=== PATIENT | female | born 1960 | race Caucasian/White ===

== ENCOUNTER → 2016-08-02 | Outpatient (CLI) | payer BC ==
[~2016-08-02] MED LIST: ADVIN25/60 INH; CETI10TA10 PO; CETI10TA84 PO; FLUT0.15 NAE; FLUT1INH INH; MONT1TAB3 PO; MULT-506 PO; OMEP20CA9 PO; POLY335019 PO; RANI300T2 PO; TRAZ50TA35 PO; VNTHFA/IN INH; ZNT/150 PO
--- NOTE | 2016-08-02 13:12 | MAMMOGRAPHY REPORT ---
BILATERAL DIGITAL SCREENING MAMMOGRAM TOMOSYNTHESIS WITH CAD: 08/02/2016 CLINICAL HISTORY: Routine screening. Patient has no complaints. TECHNIQUE: Breast tomosynthesis in addition to standard 2D mammography was performed. Current study was also evaluated with a Computer Aided Detection (CAD) system. COMPARISON: Comparison is made to exams dated: 07/28/2015 mammogram, 07/27/2014 mammogram, 07/23/2013 mammogram, 07/17/2012 mammogram, and 07/15/2011 mammogram - [facility]. BREAST COMPOSITION: The tissue of both breasts is heterogeneously dense, which may obscure small ma sses. FINDINGS: No suspicious masses, calcifications, or areas of architectural distortion are noted in e ither breast. There has been no significant interval change compared to prior exams. IMPRESSION: ACR BI-RADS CATEGORY 1: NEGATIVE There is no mammographic evidence of malignancy. A 1 year screening mammogram is recommended. The p atient will receive written notification of the results. Approximately 10% of breast cancers are not detected with mammography. A negative mammographic repor t should not delay biopsy if a clinically suggestive mass is present. Poppy Dukes M.D. ah/:08/02/2016 08:07:42 Grounds Caretaker: Prabhakar CANO(R)(M), [facility] letter sent: Normal 1/2 BI-RADS Code: ACR BI-RADS Category 1: Negative
== END | disposition home or self-care (01) ==
LOC: C.MAMM 07:40
PROVIDERS: ATTEND Family Medicine
DX: Z12.31 Encounter for screening mammogram for malignant neoplasm of breast (principal)

== ENCOUNTER → 2016-09-25 | Day surgery (SDC) | payer BC ==
[2016-09-19 13:56] VITALS: BMI 27.0
[~2016-09-25] VITALS: Ht 157.5 cm; Wt 68.2 kg
[~2016-09-25] MED LIST changes: -CETI10TA10 PO; +LIDOCAINE HCL 2% 2 ML VIAL (20MG/ML) ONE; +PROPOFOL IV EMULSION 10 MG/ML 20 ML VIAL IV ONE; +SODIUM CHLORIDE 0.9% 500ML 500 ML IV ONE
[2016-09-25 13:00] VITALS: Ht 157.5 cm; Wt 68.2 kg
[2016-09-25 13:24] VITALS: TEMP 36.5
--- NOTE | 2016-09-25 13:47 | Endo History and Physical ---
History & Physical Date of Service: September 25, 2016. Chief Complaint: ROUTINE SCREENING Referring Physician: DR. CERNA History of Present Illness 56 yo CF who presents for screening colonoscopy. Past Surgical History Hx Cardiac Surgery: No Hx Internal Defibrillator: No Hx Pacemaker: No Hx Abdominal Surgery: No Hx of Implantable Prosthesis: No Hx Post-Op Nausea and Vomiting: Yes Hx Cancer Surgery: Yes (BCC EXCISION FROM HEAD) Hx Thoracic Surgery: No Hx Orthopedic: No Hx Urinary Tract Surgery: No Family History Colon CA Social History Smoking Status: Never Smoker Hx Substance Use: No Hx Alcohol Use: Yes (1-2 DRINKS DAILY) Allergies Coded Allergies: Dust Mite Extract (Verified Allergy, Unknown, ., 09/25/16) NO KNOWN DRUG ALLERGIES (Verified Allergy, Unknown, ., 09/25/16) POLLEN (Verified Allergy, Unknown, ., 09/25/16) Current Medications Reported Home Medications Medications Dose Route/Sig Max Daily Dose Days Date Category Ventolin Hfa (Albuterol) 200 Puffs/48022 Mcg Aers 2-4 Puffs INH Q6H 09/25/16 Reported Advair Diskus 250/50 60 Dose (Fluticasone Prop/Salmeterol) 1 Ea Aerp 1 Puffs INH BID 30 09/25/16 Reported Miralax (Polyethylene Glycol 3350) 1 Pow Pow 17 Gm PO DAILY PRN 09/19/16 Reported Trazodone (Trazodone HCl) 50 Mg Tab 50 Mg PO HS PRN 09/19/16 Reported Zyrtec (Cetirizine HCl) 10 Mg Tab 10 Mg PO QAM 09/19/16 Reported Multivitamin (Multivitamins) Tab 1 Tab PO QAM 09/19/16 Reported Zantac (Ranitidine HCl) 300 Mg Tab 300 Mg PO HS 09/19/16 Reported Prilosec (Omeprazole) 20 Mg Cap 20 Mg PO QAM 09/19/16 Reported Vital Signs Weight (Kilograms): 68.18 Height (Feet): 5 Height (Inches): 2 Date Time Temp Pulse Resp B/P Pulse Ox O2 Delivery O2 Flow Rate FiO2 09/25/16 13:24 36.5 67 18 132/75 97 Room Air Physical Exam General Appearance: WD/WN, no apparent distress Respiratory/Chest: Auscultation: breath sounds normal Cardiovascular: Heart Auscultation: RRR Abdomen: Bowel Sounds: normal Inspection & Palpation: soft, non-distended, no tenderness, guarding & rebound Assessment and Plan Assessment: 56 yo CF who presents for screening colonoscopy. Plan: Proceed with colonoscopy.
--- NOTE | 2016-09-25 14:29 | Discharge Instructions ---
Endoscopy Patient Instructions Date / Procedure(s) Performed September 25, 2016. Colonoscopy Allergy Information Coded Allergies: Dust Mite Extract (Verified Allergy, Unknown, ., 09/25/16) NO KNOWN DRUG ALLERGIES (Verified Allergy, Unknown, ., 09/25/16) POLLEN (Verified Allergy, Unknown, ., 09/25/16) Discharge Date / Findings September 25, 2016. Diverticulosis Internal hemorrhoids Medication Instructions Stopped Medication(s): STOP ALL MEDICATIONS EXCEPT PRILOSEC OK to resume all medications today as prescribed Reported Home Medications Medications Dose Route/Sig Max Daily Dose Days Date Category Ventolin Hfa (Albuterol) 200 Puffs/06196 Mcg Aers 2-4 Puffs INH Q6H 09/25/16 Reported Advair Diskus 250/50 60 Dose (Fluticasone Prop/Salmeterol) 1 Ea Aerp 1 Puffs INH BID 30 09/25/16 Reported Miralax (Polyethylene Glycol 3350) 1 Pow Pow 17 Gm PO DAILY PRN 09/19/16 Reported Trazodone (Trazodone HCl) 50 Mg Tab 50 Mg PO HS PRN 09/19/16 Reported Zyrtec (Cetirizine HCl) 10 Mg Tab 10 Mg PO QAM 09/19/16 Reported Multivitamin (Multivitamins) Tab 1 Tab PO QAM 09/19/16 Reported Zantac (Ranitidine HCl) 300 Mg Tab 300 Mg PO HS 09/19/16 Reported Prilosec (Omeprazole) 20 Mg Cap 20 Mg PO QAM 09/19/16 Reported Provider Instructions Activity Restrictions - No exercising or heavy lifting for 24 hours. - Do not drink alcohol the day of the procedure. - Do not drive a car or operate machinery until the day after the procedure. - Do not make any important decisions or sign important papers in 24 hours after the procedure. Following Day: - Return to full activity which may include returning to work/school. Diet Start your diet with liquids and light foods (jello, soup, juice, toast). Then eat your usual diet if not nauseated. Treatment For Common After Affects For mild abdominal pain, bloating, or excessive gas: - Rest - Eat lightly - Lie on right side Follow-Up Information Follow-up with DR. CERNA as scheduled Anesthesia Information What You Should Know You have had a procedure that required some medicine to reduce anxiety and discomfort. This treatment is called moderate sedation. After receiving the treatment, you may be sleepy, but you will be able to breathe on your own. The effects of the treatment may last for several hours. Follow these instructions along with Activity/Diet recommendations noted above: * Do NOT do anything where dizziness or clumsiness would be dangerous. * Rest quietly at home today, then you can be up and about tomorrow. * Have a responsible person stay with you the rest of today. * You may have had an I.V. today. If so, you may take the dressing off later today. Recommendations Call your doctor if: * Trouble breathing * Continuous vomiting for more than 24 hours * Temperature above 101 degrees * Severe abdominal pain or bloating * Pain not relieved by pain medicine ordered * There is increased drainage or redness from any incision * A large amount of rectal bleeding greater than 2-3 tablespoons. (If you had a polyp/s removed or have hemorrhoids, a small amount of blood - from the rectum is to be expected.) * You have any unanswered questions or concerns. IN THE EVENT OF A SERIOUS EMERGENCY, GO TO THE NEAREST EMERGENCY ROOM Your discharge instructions were prepared by provider David Best. Patient Instructions Signature Page Allyson Tracey Patient (or Guardian) Signature/Date: I have read and understand the instructions given to me by my caregivers. Caregiver/RN/Doctor Signature/Date: The above-named patient and/or guardian has received patient instructions on this date. + Original Patient Signature Page (only) stays with chart. Please make copy for patient.
--- NOTE | 2016-09-25 14:29 | GI REPORT ---
Procedure Date: 09/25/2016 2:05 PM Procedure: Colonoscopy Indications: Screening for colorectal malignant neoplasm Medicines: Monitored Anesthesia Care Complications: No immediate complications. Estimated Blood Loss: Estimated blood loss: none. Procedure: Pre-Anesthesia Assessment: - Prior to the procedure, a History and Physical was performed, and patient medications and allergies were reviewed. The patient's tolerance of previous anesthesia was also reviewed. The risks and benefits of the procedure and the sedation options and risks were discussed with the patient. All questions were answered, and informed consent was obtained. Prior Anticoagulants: The patient has taken no previous anticoagulant or antiplatelet agents. ASA Grade Assessment: II - A patient with mild systemic disease. After reviewing the risks and benefits, the patient was deemed in satisfactory condition to undergo the procedure. After I obtained informed consent, the scope was passed under direct vision. Throughout the procedure, the patient's blood pressure, pulse, and oxygen saturations were monitored continuously. The On-site loaner was introduced through the anus and advanced to the terminal ileum. The colonoscopy was performed without difficulty. The patient tolerated the procedure well. The quality of the bowel preparation was good. The terminal ileum, ileocecal valve, appendiceal orifice, and rectum were photographed. Findings: Multiple small-mouthed diverticula were found in the sigmoid colon. Non-bleeding internal hemorrhoids were found during retroflexion. The hemorrhoids were small. Impression: - Diverticulosis in the sigmoid colon. - Non-bleeding internal hemorrhoids. - No specimens collected. Recommendation: - Resume previous diet. - Continue present medications. - Repeat colonoscopy in 10 years for surveillance. - Return to primary care physician as previously scheduled. David Best, DO 09/25/2016 2:29:01 PM This report has been signed electronically. Note Initiated On: 09/25/2016 2:05 PM I attest to the content of the Intraoperative Record and orders documented therein, exceptions below
[2016-09-25 14:55] VITALS: BP 121/70; PULSE 73; O2SAT 98
--- NOTE | 2016-09-25 15:59 | Anesthesiology Progress Note ---
Anesthesia Post Op Note Date & Time September 25, 2016 at 15:59 Vital Signs Pain Intensity: 0 Vital Signs Past 12 Hours Date Time Temp Pulse Resp B/P Pulse Ox O2 Delivery O2 Flow Rate FiO2 09/25/16 14:55 73 16 121/70 98 Room Air 09/25/16 14:40 77 16 116/72 97 Room Air 09/25/16 14:25 68 16 120/67 98 Room Air 09/25/16 13:24 36.5 67 18 132/75 97 Room Air Notes Mental Status: alert / awake / arousable, participated in evaluation Pt Amnestic to Procedure: Yes Nausea / Vomiting: adequately controlled Pain: adequately controlled Airway Patency, RR, SpO2: stable & adequate BP & HR: stable & adequate Hydration State: stable & adequate Anesthetic Complications: no major complications apparent
== END | disposition home or self-care (01) ==
LOC: C.GI 12:43
PROVIDERS: ATTEND Internal Medicine
DX: Z12.11 Encounter for screening for malignant neoplasm of colon (principal); K57.30 Diverticulosis of large intestine without perforation or abscess without bleeding; K64.8 Other hemorrhoids; Z80.0 Family history of malignant neoplasm of digestive organs

== ENCOUNTER → 2017-01-14 | Outpatient (CLI) | payer BC ==
[~2017-01-14] MED LIST changes: -LIDOCAINE HCL 2% 2 ML VIAL (20MG/ML) ONE; -PROPOFOL IV EMULSION 10 MG/ML 20 ML VIAL IV ONE; -SODIUM CHLORIDE 0.9% 500ML 500 ML IV ONE; -ZNT/150 PO
--- NOTE | 2017-01-14 14:27 | DIAGNOSTIC IMAGING REPORT ---
LEFT HAND MIN 3 VIEWS CLINICAL HISTORY: 56 years-old Female presenting with left first carpometacarpal joint pain. TECHNIQUE: Frontal, oblique, and lateral views of the left hand were obtained. COMPARISON: Correlation made to plain radiographs of the right hand from 2015. FINDINGS: Degenerative change of the first carpometacarpal articulation. Degenerative change of the scaphoid-trapezium articulation also noted. Radiocarpal articulations preserved. There are significant degenerative change elsewhere in the hand. No acute fracture or malalignment. Regional soft tissues normal. IMPRESSION: Degenerative change of the scaphoid-trapezium and first carpometacarpal articulations. This is most consistent with degenerative joint disease. Electronically signed by: Brian Marie M.D. 01/14/2017 2:26 PM Dictated Date/Time: 01/14/2017 2:24 PM
== END | disposition home or self-care (01) ==
LOC: C.RDSM 14:08
PROVIDERS: ATTEND Physician Assistant
DX: R52 Pain, unspecified (principal)

== ENCOUNTER → 2017-01-15 | Outpatient (CLI) | payer BC ==
[2017-01-15 15:30] LABS: BASO % 0.3 %; BASO ABS # 0.02 K/uL (0-0.2); COMPLETE YES; EOS % 3.2 %; IG% 0.1 %; LYMPH % 23.9 %; LYMPH ABS # 1.65 K/uL (1.2-3.4); MEAN CELL VOLUME 90.9 fL (80-100); MEAN CORPUSCULAR HEMOGLOBIN 29.8 pg (25-34); MEAN CORPUSCULAR HGB CONC 32.8 g/dl (32-36); MEAN PLATELET VOLUME 9.5 fL (7.4-10.4); MONO % 6.8 %; NEUT % 65.7 %; PLATELET COUNT 318 K/uL (130-400); RED BLOOD COUNT 4.29 M/uL (4.2-5.4)
[2017-01-15 15:50] LABS: BLOOD UREA NITROGEN 21 mg/dl (7-18); BUN/CREATININE RATIO 26.6 (10-20); CALCIUM 9.1 mg/dl (8.5-10.1); CARBON DIOXIDE 28 mmol/L (21-32); CHLORIDE 106 mmol/L (98-107); CREATININE 0.79 mg/dl (0.60-1.20); GLUCOSE 101 mg/dl (70-99); POTASSIUM 4.1 mmol/L (3.5-5.1); SODIUM 140 mmol/L (136-145)
== END | disposition home or self-care (01) ==
LOC: C.LAB 14:28
PROVIDERS: ATTEND Physician Assistant
DX: M18.12 Unilateral primary osteoarthritis of first carpometacarpal joint, left hand (principal)

== ENCOUNTER → 2017-02-04 | Day surgery (SDC) | payer BC ==
[2017-01-17 13:35] VITALS: Ht 157.5 cm; Wt 68.2 kg
[~2017-02-04] VITALS: Ht 157.5 cm; Wt 68.2 kg
[~2017-02-04] MED LIST changes: -ADVIN25/60 INH; +ATROPINE SULFATE 0.1 MG/ML 5ML SYR IV PRN; +BUPIVACAINE 0.5 % 5 MG/1 ML MPF 30ML VIAL ONE; +CEFAZOLIN 2000 MG/60 ML D5W IV SCH; +DEXAMETHASONE SOD INJ 4 MG/ML VIAL ONE; +FENTANYL CITRATE INJ 50 MCG/1 ML 2 ML VIAL ONE; +KETOROLAC TROMETHAMINE 30 MG/ML VIAL IV. PRN; +LACTATED RINGER'S 1000ML 1,000 ML IV SCH; +LIDOCAINE HCL 2% 2 ML VIAL (20MG/ML) ONE; +MIDAZOLAM HCL 1 MG/ML 2ML VIAL ONE; +ONDANSETRON INJ 2 MG/ML 2 ML VIAL IV PRN; +ONDANSETRON INJ 2 MG/ML 2 ML VIAL ONE; +OXYCODONE/ACETAMINOPHEN 5-325 TAB PO PRN; +PROPOFOL IV EMULSION 10 MG/ML 20 ML VIAL IV ONE; +SODIUM CHLORIDE 0.9% 1000ML 1,000 ML IV SCH
--- NOTE | 2017-02-04 06:46 | History & Physical Bridge Note ---
H&P Re-Evaluation Bridge Note: I have examined the patient, reviewed the History & Physical and in the interval since the performance of the History & Physical I have noted the following changes of clinical significance:consent reviewed. No changes noted
--- NOTE | 2017-02-04 06:48 | Discharge Instructions ---
Discharge Instructions Date of Service Feb 04, 2017. Visit Reason for Visit: Left Thumb Basal Joint Arthritis Discharge Discharge Diagnosis / Problem: same Discharge Goals Goal(s): Decrease discomfort, Improve function Medications Stopped Medications Name(s): na Restart Stopped Medication(s): use scripts as directed Activity Recommendations Activity Limitations: as noted below Lifting Limitations: until after follow-up appointment Exercise/Sports Limitations: until after follow-up appointment May Resume Sexual Activity: when tolerated Shower/Bathe: keep incision dry Driving or Machine Use: Anesthesia . Post Anesthesia Instructions: If you have had General Anesthesia or IV Sedation: * Do not drive today. * Resume driving when surgeon permits. * Do not make important decisions or sign legal documents today. * Call surgeon for: 1. Temperature elevations greater than 101 degrees F. 2. Uncontrollable pain. 3. Excessive bleeding. 4. Persistent nausea and vomiting. 5. Medication intolerance (nausea, vomiting or rash). * For nausea and vomiting use only clear liquids such as: tea, soda, bouillon until nausea subsides, then gradually increase diet as tolerated. * If you have any concerns or questions, call your surgeon's office. If physician is unavailable and it is an emergency, call 911 or go to the nearest emergency room. . Instructions / Follow-Up Instructions / Follow-Up DIET: * Resume previous diet. MEDICATIONS: * Please take your prescriptions as instructed at your pre-op appointment and/ or see medication discharge instructions listed above. * If concerns develop, call your physician's office at . SPECIAL CARE INSTRUCTIONS: * Ice/Elevate as instructed. * Keep dressing clean, dry, intact. * Your surgical extremity may be discolored due to prepping agents used on the skin. A bluish-green tint is a normal variant and should not cause alarm. Call your doctor at [phone] if: * Temperature above 101 degrees * Pain not relieved by pain medicine ordered * There is increased drainage or redness from any incision * You have any unanswered questions, problems or concerns. FOLLOW UP VISIT: * If not already scheduled, please call the office at to schedule a follow-up appointment. Diet Recommendations Recommended Home Diet: resume previous diet Procedures Procedures Performed: left thumb cmc reconstruction Pending Studies Studies pending at discharge: no Medical Emergencies . Who to Call and When: Medical Emergencies: If at any time you feel your situation is an emergency, please call 911 immediately. . Non-Emergent Contact Non-Emergency issues call your: Specialist Call Non-Emergent contact if: temperature is above 101.5, wound has increased drainage, wound has increased redness, wound has increased pain . . "Provider Documentation" section prepared by James Chatterjee. .
--- NOTE | 2017-02-04 08:28 | [facility] Post Operative Brief Note ---
Immediate Operative Summary Operative Date Feb 04, 2017. Pre-Operative Diagnosis Left Thumb Basal Joint Arthritis Post-Operative Diagnosis Same Procedure(s) Performed Left Thumb Open Basal Joint Reconstruction With FCR autograft Surgeon Dr. Chatterjee Jewel Cupping Machine Operator Surgeon(s) Dr. Sandi Light, Fellow; Sarah Pete PA-C Estimated Blood Loss Trace Findings laxity/djd cmc joint Fluids (cc crystalloids) 1000cc Specimens None Drains none Anesthesia LMA Complication(s) None Disposition Recovery Room / PACU
[2017-02-04] MEDS: FENTANYL CITRATE INJ 50 MCG/1 ML 2 ML VIAL IV PRN ×5 (08:39→09:18)
--- NOTE | 2017-02-04 08:53 | OPERATIVE REPORT ---
DATE OF OPERATION: 02/04/2017 SURGEON: Dr. Chatterjee. ASSURANCE AUDITOR: Nadege. SECOND ASSURANCE AUDITOR: Juan R. PREOPERATIVE DIAGNOSIS: Basel joint arthritis with laxity left thumb. POSTOPERATIVE DIAGNOSIS: Same. OPERATION PERFORMED: Ligament reconstruction, tendon interposition, basal joint reconstruction with FCR autograft. PERIOPERATIVE SITUATION: Medically cleared female with intractable pain. Recently had an EMG nerve conduction study which did not reveal carpal tunnel advancement, so we decided not to do that. She is aware of that and has agreed to it. At this point in time, we will only proceed with basal joint reconstruction. PROCEDURE: The patient properly identified, site verified, consent verified, 2 grams of Ancef confirmed as being given. The left upper extremity was prepped and draped in usual routine fashion. Tourniquet inflated to 250 mmHg after exsanguination of limb with a rubber Esmarch bandage for a total of 61 minutes. A Spence-type incision made. Blunt dissection down to the extensor mechanism of the thumb, the sensory branches of the radial nerve were protected. The tendons were then medially and laterally retracted, the capsule opened, and the trapezium subperiosteally dissected and then removed. Good decompression was obtained. The FCR was preserved. This was then irrigated. Tunnel was then made in the first metacarpal. The FCR was then harvested through 2 separate incisions volarly and then this area was irrigated and closed with 3-0 nylon. The tendon was then trimmed and tagged with #2 Vicryl and passed through the tunnel on the first metacarpal and actually had a good press fit and kept it well reduced. The JuggerKnot 1.0 Mini was then placed in the trapezoid and an additional stitch in the capsule and then this was used to tie the FCR down to the trapezoid, rebuilding the volar beak ligament. This was then anchovied on itself and closed inside the joint or with the capsule covering it and excellent repair was obtained with 2-0 Vicryl. A 0.062 K-wire was then placed, holding the first metacarpal in stable position. Three-view x-ray revealed excellent positioning. The wound was then irrigated multiple times and then closed with running 3-0 nylon suture. The wound was then appropriately dressed and splinted and the patient transferred to recovery room in satisfactory condition, having tolerated the procedure well. Estimated blood loss trace. Crystalloid 1000 mL. 1.0 JuggerKnot utilized. I attest to the content of the Intraoperative Record and any orders documented therein. Any exception s are noted below.
[2017-02-04 09:42] VITALS: TEMP 36.8
[2017-02-04 10:24] VITALS: BP 148/80; PULSE 77; O2SAT 99
--- NOTE | 2017-02-04 10:34 | Anesthesia Progress Nt - [facility] ---
Anesthesia Post Op Note Date & Time Feb 04, 2017 at 10:34 Vital Signs Vital Signs Past 12 Hours Date Time Temp Pulse Resp B/P (MAP) Pulse Ox O2 Delivery O2 Flow Rate FiO2 02/04/17 10:24 77 16 148/80 (102) 99 Room Air 02/04/17 09:42 36.8 78 16 145/77 (99) 98 Room Air 02/04/17 09:31 72 13 02/04/17 09:31 74 13 94 02/04/17 09:30 143/86 02/04/17 09:28 67 11 02/04/17 09:28 67 11 100 02/04/17 09:26 146/82 02/04/17 09:23 73 7 02/04/17 09:23 36.7 69 12 138/77 100 Diffusion Mask 6 02/04/17 09:23 74 7 100 02/04/17 09:21 138/77 02/04/17 09:18 71 13 02/04/17 09:18 71 13 98 02/04/17 09:15 147/81 02/04/17 09:13 68 9 02/04/17 09:13 68 9 100 02/04/17 09:10 154/75 02/04/17 09:08 64 7 02/04/17 09:08 64 7 100 02/04/17 09:07 73 7 100 02/04/17 09:07 73 7 02/04/17 09:05 147/74 02/04/17 09:02 66 5 02/04/17 09:02 66 5 100 02/04/17 09:01 138/71 02/04/17 08:57 62 9 02/04/17 08:57 62 9 100 02/04/17 08:56 142/80 02/04/17 08:55 65 10 02/04/17 08:55 65 10 02/04/17 08:51 151/79 02/04/17 08:50 65 9 02/04/17 08:50 65 9 100 02/04/17 08:45 62 11 02/04/17 08:45 61 11 154/80 100 02/04/17 08:41 148/77 02/04/17 08:40 63 15 02/04/17 08:40 62 15 02/04/17 08:36 146/83 02/04/17 08:35 73 15 02/04/17 08:35 72 15 02/04/17 08:31 154/98 02/04/17 08:30 36.2 79 16 154/98 100 Diffusion Mask 6 02/04/17 06:28 36.4 75 16 154/92 (112) 98 Room Air Notes Mental Status: alert / awake / arousable, participated in evaluation Pt Amnestic to Procedure: Yes Nausea / Vomiting: adequately controlled Pain: adequately controlled Airway Patency, RR, SpO2: stable & adequate BP & HR: stable & adequate Hydration State: stable & adequate Anesthetic Complications: no major complications apparent
== END | disposition home or self-care (01) ==
LOC: X.SURG 06:14
PROVIDERS: ATTEND Physical Medicine & Rehabilitation Sports Medicine
DX: M19.042 Primary osteoarthritis, left hand (principal); K21.9 Gastro-esophageal reflux disease without esophagitis; J45.909 Unspecified asthma, uncomplicated; Z79.899 Other long term (current) drug therapy

== ENCOUNTER → 2017-03-03 | Outpatient (CLI) | payer BC ==
[~2017-03-03] MED LIST changes: -ATROPINE SULFATE 0.1 MG/ML 5ML SYR IV PRN; -BUPIVACAINE 0.5 % 5 MG/1 ML MPF 30ML VIAL ONE; -CEFAZOLIN 2000 MG/60 ML D5W IV SCH; -DEXAMETHASONE SOD INJ 4 MG/ML VIAL ONE; -FENTANYL CITRATE INJ 50 MCG/1 ML 2 ML VIAL ONE; -KETOROLAC TROMETHAMINE 30 MG/ML VIAL IV. PRN; -LACTATED RINGER'S 1000ML 1,000 ML IV SCH; -LIDOCAINE HCL 2% 2 ML VIAL (20MG/ML) ONE; -MIDAZOLAM HCL 1 MG/ML 2ML VIAL ONE; -ONDANSETRON INJ 2 MG/ML 2 ML VIAL IV PRN; -ONDANSETRON INJ 2 MG/ML 2 ML VIAL ONE; -OXYCODONE/ACETAMINOPHEN 5-325 TAB PO PRN; -POLY335019 PO; -PROPOFOL IV EMULSION 10 MG/ML 20 ML VIAL IV ONE; -SODIUM CHLORIDE 0.9% 1000ML 1,000 ML IV SCH; -TRAZ50TA35 PO
--- NOTE | 2017-03-03 11:04 | DIAGNOSTIC IMAGING REPORT ---
ADDENDUM ADDENDUM: There is an error in the initial report. Fracture is not seen at the base of the first proximal phalanx. The presumed fracture is seen at the base of the first metacarpal. Clinical correlation will be required. Electronically signed by: Nakul Kunz M.D. 03/06/2017 8:15 AM Dictated Date/Time: 03/06/2017 8:14 AM ORIGINAL REPORT LEFT THUMB 3 VIEWS CLINICAL HISTORY: Arthritis. FINDINGS: 3 views of left thumb are compared to study dated 04/06/2015. The skeletal structures are osteopenic. There is an angulated fracture through the base and proximal shaft of the first proximal phalanx. No additional fracture is seen. The trapezium has been removed. Moderate osteoarthritic change is present at the first metacarpophalangeal joint. Arthritic change is also seen at the distal interphalangeal joint. No bony erosion is seen. Soft tissue swelling is present overlying the first finger. IMPRESSION: 1. There is an angulated fracture through the base and proximal shaft of the first proximal phalanx. 2. No additional fracture is seen. 3. The trapezium is surgically absent. 4. Osteopenia and arthritic change as above. Electronically signed by: Nakul Kunz M.D. 03/03/2017 11:03 AM Dictated Date/Time: 03/03/2017 10:59 AM
== END | disposition home or self-care (01) ==
LOC: C.RDSM 09:34
PROVIDERS: ATTEND Physician Assistant
DX: M18.12 Unilateral primary osteoarthritis of first carpometacarpal joint, left hand (principal); R93.7 Abnormal findings on diagnostic imaging of other parts of musculoskeletal system

== ENCOUNTER 2017-03-27 14:36 | Emergency (ER) | payer BC ==
[~2017-03-27] VITALS: Ht 157.5 cm; Wt 71.0 kg
[2017-03-27 14:38] VITALS: TEMP 36.9; Ht 157.5 cm; Wt 71.0 kg
[2017-03-27] MEDS ORDERED: XYLOCAINE 1%/SOD BICARB 20 ML VIAL INFIL ONE (15:00)
--- NOTE | 2017-03-27 15:06 | EMERGENCY ROOM VISIT NOTE ---
ED Visit Note First contact with patient: 14:41 Chief Complaint: Left second Finger Laceration History of Present Illness: This patient is a 56-year-old female who presents to the Emergency Department by private vehicle for evaluation of their left second finger laceration. Patient sustained the laceration while trying to remove fluid from a mixer and blender, states she sliced her fingertip on the blade. She states this happened at about 1:30 PM today. They report a moderate amount of bleeding initially, and states that she has been unable to stop the bleeding, which is why she is here. They deny any numbness or tingling into the distal extremity. They report no decreased range of motion of the affected digit. She has not taken any medications for the pain, but does note that she had ibuprofen this morning for general pain. Patient rates her current discomfort as a 2/10. Patient denies any other injuries. The patient is left-hand dominant. Patient's Tetanus status is currently up-to-date. Medications: Reviewed in chart Allergies: Reviewed in chart PMH: GERD, asthma, seasonal allergies SHx: Lives at home. Denies tobacco, alcohol, recreational drug use. ROS: All pertinent positive and negative review of systems are appropriately documented in the History of Present Illness. Physical Exam: VITAL SIGNS - Vital signs and nursing notes were reviewed. GENERAL - Pleasant and cooperative, in no acute distress. Communicates well with provider and answers questions appropriately. SKIN - There is a 2 cm long laceration noted to the palmar aspect of the distal left second finger. The edges gape apart with traction. No foreign bodies appreciated. Upon further examination there are no deep structures including vessel, tendon, or bony structures appreciated. There is moderate active bleeding noted. MUSCULOSKELETAL - Laceration as described above. + 5/5 strength appreciated of the affected digit. Full flexion and extension range of motion of the affected digit. NEUROLOGIC - alert and oriented 4. Normal speech, normal gait. Sensation fully intact in the tip of the left second finger proximal and distal to the wound. VASCULAR - Capillary refill was brisk. ED Course: Patient was seen and evaluated by myself. Costs and benefits of performing primary wound closure versus no repair were discussed with the patient who verbalizes understanding. Verbal consent was obtained prior to performing the procedure. 2 cc of 1% buffered lidocaine was used to perform a digital block of the left second digit. The wound was cleansed and prepped in the typical sterile fashion utilizing normal saline and Betadine. The wound was sterilely draped. Once proper anesthetization was established, the wound was further examined and demonstrated no changes from above. The wound was copiously irrigated with normal saline and Betadine. The wound was closed using 4 simple, 5-0 nylon sutures with the wound edges being well approximated. Patient tolerated the procedure well. No complications were met. The wound was cleansed and dressed with a Bacitracin dressing. Patient educated on worrisome symptoms for return visit to the Emergency Department. Patient discharged to home in stable condition and ambulatory. Medication Reconciliation: I attest that I have personally reviewed the patient' s current medication list. Blood pressure screening: The patient was found to have an elevated blood pressure and was referred to their primary doctor for recheck and further treatment. Problem List Medical Problems: (1) Seasonal allergies Status: Chronic Surgical Problems: (1) H/O endoscopy Status: Resolved Current/Historical Medications Scheduled Cetirizine (Zyrtec), 10 MG PO QAM Montelukast Sodium (Singulair), 10 MG PO QPM Multivitamin (Multivitamin), 1 TAB PO QAM Ranitidine Hcl (Zantac), 150 MG PO BID Scheduled PRN Albuterol Hfa (Ventolin Hfa), 2-4 PUFFS INH Q6H PRN for Shortness of Breath Fluticasone Furoate-Vilanterol (Breo Ellipta), 1 PUFF INH DAILY PRN for Shortness of Breath Fluticasone Propionate (Nasal) (Flonase Allergy Relief), 2 SPRAYS BETH BID PRN for Allergy Symptoms Allergies Coded Allergies: Dust Mite Extract (Verified Allergy, Unknown, ., 02/04/17) NO KNOWN DRUG ALLERGIES (Verified Allergy, Unknown, ., 02/04/17) POLLEN (Verified Allergy, Unknown, ., 02/04/17) Vital Signs Date Time Temp Pulse Resp B/P (MAP) Pulse Ox O2 Delivery O2 Flow Rate FiO2 03/27/17 15:50 70 18 133/90 100 03/27/17 14:38 36.9 80 18 170/86 99 Room Air Departure Information Impression Primary Impression: Laceration of left index finger Dispostion Home / Self-Care Condition GOOD Referrals Celine Stewart D.O. (PCP) Patient Instructions ED Laceration Hand, [facility] Additional Instructions Discharge Instructions: You have received 4 sutures on your left 2nd finger. These sutures are NOT dissolvable and WILL need to be removed by a health care provider in 8-10 days. You can return to the Emergency Department or contact your Primary Care Provider to have the sutures removed. Proper wound care is essential for adequate wound healing and infection prevention. You can shower and clean the wound with soap and water. Do not scour over the wound, pat dry with a towel. Do not submerse the wound (i.e. bathe or dish wash) until the sutures have been removed. You can use an antibiotic ointment with a dressing over the wound for the next 3-4 days. After this time you may leave the wound dry and open to the air. If crust develops over the wound you can use a Q-tip to apply a 1:1 peroxide:water solution to clean the wound. Look for signs of infection of the wound including: increased pain, swelling, foul discharge, streaking, or increased temperature. If any of these are noticed you should return to the Emergency Department for further assessment and treatment. As with any laceration you may have received nerve damage to the surrounding tissues. This damage may or may not be permanent. You should keep the area covered with sunscreen for the first 6 months to 1 year when at risk for exposure to help minimize scarring. You can also use scar reducing creams or Vitamin E oil to help minimize scarring. For pain control, you can use the following [id number] medicines (if >12 yo): - Regular strength (325mg/tab) Tylenol (acetaminophen) 2 tabs every 4-6 hours as needed. Do not exceed 10 tablets in a 24 hour period. Avoid taking more than 3000 mg of Tylenol per day. This includes any other sources of acetaminophen you may take on a regular basis. - Regular strength (200 mg/tab) Advil (ibuprofen) 1-2 tabs every 4-6 hours as needed. Do not exceed a dose of 2400 mg per day. Return to the emergency department if your symptoms worsen despite treatment course outlined above. Problem Qualifiers Primary Impression: Laceration of left index finger Encounter type: initial encounter Damage to nail status: without damage Foreign body presence: without foreign body Qualified Codes: S61.211A - Laceration without foreign body of left index finger without damage to nail, initial encounter
[2017-03-27] MEDS ORDERED: ZNT/150 PO (15:10)
[2017-03-27 15:50] VITALS: BP 133/90; PULSE 70; O2SAT 100
== END 2017-03-27 15:50 | disposition home or self-care (01) ==
LOC: C.EDB 14:38
DX: S61.211A Laceration without foreign body of left index finger without damage to nail, initial encounter (principal); W45.8XXA Other foreign body or object entering through skin, initial encounter; K21.9 Gastro-esophageal reflux disease without esophagitis; J45.909 Unspecified asthma, uncomplicated; J30.2 Other seasonal allergic rhinitis

== ENCOUNTER → 2017-04-09 | Outpatient (CLI) | payer BC ==
[~2017-04-09] MED LIST changes: -OMEP20CA9 PO; -RANI300T2 PO; +ZNT/150 PO
== END | disposition home or self-care (01) ==
LOC: C.RDSM 14:05
PROVIDERS: ATTEND Physical Medicine & Rehabilitation Sports Medicine
DX: M18.12 Unilateral primary osteoarthritis of first carpometacarpal joint, left hand (principal)

== ENCOUNTER → 2017-08-08 | Outpatient (CLI) | payer BC ==
--- NOTE | 2017-08-08 15:36 | MAMMOGRAPHY REPORT ---
BILATERAL DIGITAL SCREENING MAMMOGRAM TOMOSYNTHESIS WITH CAD: 08/08/2017 CLINICAL HISTORY: Routine screening. Patient has no complaints. TECHNIQUE: Breast tomosynthesis in addition to standard 2D mammography was performed. Current study was also evaluated with a Computer Aided Detection (CAD) system. COMPARISON: Comparison is made to exams dated: 08/02/2016 mammogram, 07/28/2015 mammogram, 07/27/2014 m ammogram, 07/23/2013 mammogram, 07/17/2012 mammogram, and 07/15/2011 mammogram - [facility]. BREAST COMPOSITION: The tissue of both breasts is heterogeneously dense, which may obscure small mas ses. FINDINGS: No suspicious masses, calcifications, or areas of architectural distortion are noted in ei ther breast. There has been no significant interval change compared to prior exams. IMPRESSION: ACR BI-RADS CATEGORY 1: NEGATIVE There is no mammographic evidence of malignancy. A 1 year screening mammogram is recommended. The pa tient will receive written notification of the results. Approximately 10% of breast cancers are not detected with mammography. A negative mammographic report should not delay biopsy if a clinically suggestive mass is present. Poppy Dukes M.D. /:08/08/2017 12:44:54 [employer] Worker: Julianna Anton, [facility] letter sent: Normal 1/2 BI-RADS Code: ACR BI-RADS Category 1: Negative
== END | disposition home or self-care (01) ==
LOC: C.MAMM 08:00
PROVIDERS: ATTEND Family Medicine
DX: Z12.31 Encounter for screening mammogram for malignant neoplasm of breast (principal)